=== PATIENT | female | born 1945 | race Caucasian/White ===

== ENCOUNTER → 2016-06-03 | Outpatient (CLI) | payer MEDICARE ==
[~2016-06-03] MED LIST: AMLO5TAB2 PO; ATOR40TA PO; CEFT2ADD IV; CIPR500S PO; CIPR500T3 PO; FAMC500T10 PO; FLEXERIL PO; HEPARIN FLUSH IV; HYDR12CA PO; HYDR25TA6 OR; IBUPOTC PO; LISI40TA OR; LOSA100T36 PO; MELO7.5T6 PO; NITR100C37 PO; OMEP20CA3 PO; OMEP20TA7 OR; OXYB5TAB5 OR; PERC5TAB6 PO; PERC5TAB8 OR; POTA20TA2 OR; SALINE FLUSH IV; SIMV40TA2 OR; VIT D 2000 PO
== END ==
LOC: M RAD 13:01
PROVIDERS: ATTEND Nurse Practitioner Adult Health
DX: Z53.8 Procedure and treatment not carried out for other reasons (principal)

== ENCOUNTER → 2016-08-16 | Outpatient (CLI) | payer MEDICARE ==
--- NOTE | 2016-08-16 12:45 | REPMRS ---
Patient History The patient states she has not had a clinical breast exam in over a year. Family history of unknown cancer in father at age 52, breast cancer in maternal aunt under age 50, unknown cancer in maternal aunt at age 72, and colorectal cancer in maternal aunt at age 50 or over. Digital Mammo Screening Bilat: August 16, 2016 - Exam #: [id number] Bilateral CC and MLO view(s) were taken. Technologist: Jennifer Zhou, Technologist Prior study comparison: August 14, 2015, bilateral digital mammo screening bilat performed at [facility]. January 24, 2014, digital mammo diagnostic bilateral performed at [facility]. January 10, 2013, bilateral digital mammo screening bilat performed at [facility]. FINDINGS: There are scattered fibroglandular densities. There is a moderate amount of residual fibroglandular tissue which is fairly symmetric. There is no interval development of dominant mass, architectural distortion, or clustered microcalcification typical of malignancy. There has been no change in the appearance of the mammogram from the prior studies. ASSESSMENT: BI-RADS/ACR category 1 mammogram. Negative. Recommendation Routine screening mammogram of both breasts in 1 year (for women over age 40). This mammogram was interpreted with the aid of an FDA-approved computer-aided dectection system. Electronically Signed By: Jose Barker MD 08/16/16 [id number]
== END ==
LOC: M RAD 11:00
PROVIDERS: ATTEND Nurse Practitioner Adult Health
DX: Z12.31 Encounter for screening mammogram for malignant neoplasm of breast (principal); Z80.3 Family history of malignant neoplasm of breast; Z80.0 Family history of malignant neoplasm of digestive organs

== ENCOUNTER → 2016-11-09 | Outpatient (CLI) | payer MEDICARE ==
[~2016-11-09] MED LIST changes: -ATOR40TA PO; +ATOR40TA75 PO; +E-Z-GAS II EFFERVESCENT PACKET (SODIUM BICARB./CITRIC ACID/SIMETHICONE) As Ordered ONE; +E-Z-HD 98% w/w 340GM SUSP BTL As Ordered ONE; +E-Z-PAQUE 96% w/w SUSP 176GM BTL As Ordered ONE; +ICAPCAP PO; -MELO7.5T6 PO; +MELO7.5T7 PO; -NITR100C37 PO; +NITR100C39 PO; +OMEP40CA2 PO; +PERC5TAB12 PO; -PERC5TAB6 PO
--- NOTE | 2016-11-09 17:32 | REP ---
Esophagram The procedure was performed under the direct supervision of Dr. Barker. The images were reviewed with Dr. Barker. A single view PA chest x-ray is submitted as a cosmetic surgeon film. The superior mediastinal structures are midline. The heart size is within normal limits. The lungs are clear. There are degenerative changes of the thoracic spine. Liquid barium and gas producing granules were given in the erect position as well as liquid barium in the prone oblique positions in order to perform a double contrast esophagram examination. The oral and pharyngeal stages of deglutition are unremarkable. Esophageal transport is prompt and efficient and there is no esophagitis, stricture, mucosal ring or hiatal hernia. There is gastroesophageal reflux demonstrated to above the level of the cira. Impression: There is gastroesophageal reflux demonstrated to above the level of the cira, otherwise unremarkable double contrast esophagram examination. 51 seconds of fluoro time was utilized for this procedure. Reviewed by DARIELA Johnson 11/09/2016 04:34 PSigned by Arnaldo Barker MD 11/09/2016 05:23 P
== END ==
LOC: M RAD 09:05
PROVIDERS: ATTEND Internal Medicine Gastroenterology
DX: R13.12 Dysphagia, oropharyngeal phase (principal); K21.9 Gastro-esophageal reflux disease without esophagitis

== ENCOUNTER → 2016-11-25 | Outpatient (REF) | payer MEDICARE ==
[~2016-11-25] MED LIST changes: -E-Z-GAS II EFFERVESCENT PACKET (SODIUM BICARB./CITRIC ACID/SIMETHICONE) As Ordered ONE; -E-Z-HD 98% w/w 340GM SUSP BTL As Ordered ONE; -E-Z-PAQUE 96% w/w SUSP 176GM BTL As Ordered ONE
== END ==
LOC: M LAB REF 10:03
PROVIDERS: ATTEND Nurse Practitioner Adult Health
DX: K12.1 Other forms of stomatitis (principal)

== ENCOUNTER 2016-11-26 07:24 | Outpatient (CLI) | payer MEDICARE ==
[~2016-11-26] VITALS: Ht 162.6 cm; Wt 93.4 kg
[2016-11-26] MEDS ORDERED: NS 1,000 ML IV ONE (08:15)
[2016-11-26] MEDS ORDERED: PROPOFOL 200 MG/20 ML VIAL As Ordered ONE (08:41)
[2016-11-26] MEDS ORDERED: LIDOCAINE 2% INJ 100 MG/5 ML SDV (FOR ANES.) As Ordered ONE (08:41)
--- NOTE | 2016-11-26 08:55 | ROOR ---
Patient Name: Deisy Case Procedure Date: 11/26/2016 8:41 AM Date of : 1945 Age: 71 Room: [facility] Gender: Female Note Status: Finalized Procedure: Upper GI endoscopy Indications: Functional Dyspepsia, Failure to respond to medical treatment, Globus sensation Providers: Gerardo MICHEL MD Referring MD: Radha Calabrese NP Requesting Provider: Medicines: Monitored Anesthesia Care Complications: No immediate complications. Procedure: Pre-Anesthesia Assessment: - The heart rate, respiratory rate, oxygen saturations, blood pressure, adequacy of pulmonary ventilation, and response to care were monitored throughout the procedure. The Endoscope was introduced through the mouth, and advanced to the second part of duodenum. The upper GI endoscopy was accomplished without difficulty. The patient tolerated the procedure well. Findings: The esophagus was normal. The stomach was normal. The examined duodenum was normal. No endoscopic abnormality was evident in the esophagus to explain the patient's complaint of dysphagia. It was decided, however, to proceed with dilation of the entire esophagus. The scope was withdrawn. Dilation was performed with a Anglin dilator with no resistance at 54 Fr. Impression: - Normal esophagus. - Normal stomach. - Normal examined duodenum. - No endoscopic esophageal abnormality to explain patient's dysphagia. Esophagus dilated with 54F bougie dilator. - No specimens collected. Recommendation: - Observe patient's clinical course. - If symptoms respond to todays dilation, then this can be done periodically as needed. - If symptoms do not respond to todays dilation, then recommend trial on amitriptyline 10-25 mg Q HS. Gerardo Michel MD Gerardo MICHEL MD 11/26/2016 8:54:36 AM This report has been signed electronically. Number of Addenda: 0 Note Initiated On: 11/26/2016 8:41 AM Estimated Blood Loss: Estimated blood loss: none.
[2016-11-26 09:12] VITALS: BP 145/97
== END 2016-11-26 09:12 | disposition home or self-care (01) ==
LOC: M OPP 07:24
PROVIDERS: ATTEND Internal Medicine Gastroenterology
DX: K30 Functional dyspepsia (principal); F45.8 Other somatoform disorders; R13.10 Dysphagia, unspecified; I10 Essential (primary) hypertension; E78.5 Hyperlipidemia, unspecified; K21.9 Gastro-esophageal reflux disease without esophagitis; M19.90 Unspecified osteoarthritis, unspecified site; M54.9 Dorsalgia, unspecified; Z88.8 Allergy status to other drugs, medicaments and biological substances; Z79.899 Other long term (current) drug therapy; Z80.1 Family history of malignant neoplasm of trachea, bronchus and lung; Z80.0 Family history of malignant neoplasm of digestive organs; Z80.3 Family history of malignant neoplasm of breast

== ENCOUNTER → 2017-06-24 | Outpatient (REF) | payer MEDICARE | LOC: M LAB REF 12:16 | DX: N39.0 Urinary tract infection, site not specified (principal) | CPT/HCPCS: 87186 ==

== ENCOUNTER → 2017-07-15 | Outpatient (REF) | payer MEDICARE ==
[2017-07-15 19:49] LABS: APPEARANCE, URINE CLEAR (CLEAR); BACTERIA, URINE AUTO NEGATIVE (NEGATIVE); BILIRUBIN, URINE AUTO NEGATIVE (NEGATIVE); BLOOD, URINE BLOOD NEGATIVE (NEGATIVE); COLOR, URINE STRAW (YELLOW); GLUCOSE, URINE (UA) AUTO NEGATIVE (NEGATIVE); KETONE, URINE AUTO NEGATIVE (NEGATIVE); LEUKOCYTE ESTERASE, URINE AUTO TRACE (NEGATIVE); NITRITE, URINE AUTO NEGATIVE (NEGATIVE); PROTEIN, URINE AUTO NEGATIVE (NEGATIVE); RBC, URINE AUTO 1 /HPF (0-3); SPECIFIC GRAVITY URINE AUTO 1.004 (1.002-1.035); SQUAMOUS EPITHELIAL CELL UR AU 0 /HPF (0-6); UROBILINOGEN, URINE AUTO 0.2 mg/dL (0.0-2.0); WBC, URINE AUTO 4 /HPF (0-3)
== END ==
LOC: M LAB REF 17:13
DX: N32.81 Overactive bladder (principal)
CPT/HCPCS: 81001

== ENCOUNTER → 2017-07-29 | Outpatient (REF) | payer MEDICARE ==
[2017-07-29 18:31] LABS: APPEARANCE, URINE HAZY (CLEAR); BACTERIA, URINE AUTO 1+ (NEGATIVE); BILIRUBIN, URINE AUTO NEGATIVE (NEGATIVE); BLOOD, URINE BLOOD 1+ (NEGATIVE); COLOR, URINE YELLOW (YELLOW); GLUCOSE, URINE (UA) AUTO NEGATIVE (NEGATIVE); KETONE, URINE AUTO TRACE mg/dL (NEGATIVE); LEUKOCYTE ESTERASE, URINE AUTO 3+ (NEGATIVE); NITRITE, URINE AUTO NEGATIVE (NEGATIVE); PROTEIN, URINE AUTO NEGATIVE (NEGATIVE); RBC, URINE AUTO 10 /HPF (0-3); SQUAMOUS EPITHELIAL CELL UR AU 0 /HPF (0-6); UROBILINOGEN, URINE AUTO 0.2 mg/dL (0.0-2.0); WBC, URINE AUTO 131 /HPF (0-3)
== END ==
LOC: M LAB REF 16:37
DX: N32.81 Overactive bladder (principal); N39.41 Urge incontinence
CPT/HCPCS: 81001

== ENCOUNTER → 2017-08-05 | Outpatient (REF) | payer MEDICARE ==
[2017-08-05 17:44] LABS: AMORPHOUS SEDIMENT SMALL (NEGATIVE); APPEARANCE, URINE HAZY (CLEAR); BACTERIA, URINE AUTO NEGATIVE (NEGATIVE); BILIRUBIN, URINE AUTO NEGATIVE (NEGATIVE); BLOOD, URINE BLOOD NEGATIVE (NEGATIVE); COLOR, URINE YELLOW (YELLOW); GLUCOSE, URINE (UA) AUTO NEGATIVE (NEGATIVE); KETONE, URINE AUTO NEGATIVE (NEGATIVE); LEUKOCYTE ESTERASE, URINE AUTO NEGATIVE (NEGATIVE); MUCUS, URINE SMALL (NEGATIVE); NITRITE, URINE AUTO NEGATIVE (NEGATIVE); PROTEIN, URINE AUTO NEGATIVE (NEGATIVE); RBC, URINE AUTO 1 /HPF (0-3); SPECIFIC GRAVITY URINE AUTO 1.015 (1.002-1.035); SQUAMOUS EPITHELIAL CELL UR AU 10 /HPF (0-6); WBC, URINE AUTO 2 /HPF (0-3)
== END ==
LOC: M LAB REF 16:21
DX: N30.00 Acute cystitis without hematuria (principal); R33.8 Other retention of urine
CPT/HCPCS: 81001

== ENCOUNTER 2017-08-11 12:45 | Day surgery (SDC) | payer MEDICARE ==
[2017-08-11] MEDS ORDERED: LIDOCAINE 1% MDV 20ML VIAL SQ (13:00)
[2017-08-11] MEDS ORDERED: LR 1,000 ML IV ×3 (13:00→17:30)
[2017-08-11] MEDS ORDERED: fentaNYL 100 MCG/2 ML INJECTION (J3010) As Ordered (13:24)
[2017-08-11] MEDS: LR 1,000 ML IV (13:25)
[2017-08-11] MEDS ORDERED: ceFAZolin SOD 1 GM in D5W MINI-BAG PLUS 50 ML IV (13:30)
[2017-08-11] MEDS ORDERED: PROPOFOL 200 MG/20 ML VIAL As Ordered ×3 (15:22→15:34)
[2017-08-11] MEDS ORDERED: KETAMINE HCL 200 MG/20 ML VIAL As Ordered (15:42)
[2017-08-11] MEDS: LIDOCAINE 1% SDV INJ 30 ML VIAL As Ordered ×2 (15:44→15:51)
[2017-08-11] MEDS: ceFAZolin 1GM INJ (J0690 PER 500MG) As Ordered (15:58)
[2017-08-11] MEDS ORDERED: ONDANSETRON 4MG/2ML VIAL (J2405) IV (17:15)
[2017-08-11] MEDS ORDERED: PERCOCET 5MG/325MG TAB PO (17:15)
[2017-08-11] MEDS ORDERED: ACETAMINOPHEN TAB 650MG DOSE (2X325MG) As Ordered (17:20)
[2017-08-11] MEDS: ACETAMINOPHEN TAB 650MG DOSE (2X325MG) PO (17:21)
== END 2017-08-11 18:20 | disposition home or self-care (01) ==
LOC: M SDC 18:20
DX: R32 Unspecified urinary incontinence (principal); R33.9 Retention of urine, unspecified; K21.9 Gastro-esophageal reflux disease without esophagitis; R06.83 Snoring; G47.30 Sleep apnea, unspecified; E78.00 Pure hypercholesterolemia, unspecified; I10 Essential (primary) hypertension; Z87.440 Personal history of urinary (tract) infections; Z90.710 Acquired absence of both cervix and uterus; Z96.1 Presence of intraocular lens; Z79.899 Other long term (current) drug therapy; Z88.8 Allergy status to other drugs, medicaments and biological substances
CPT/HCPCS: 64581

== ENCOUNTER 2017-08-18 07:26 | Day surgery (SDC) | payer MEDICARE ==
[2017-08-18] MEDS: LR 1,000 ML IV ×2 (07:25)
[2017-08-18] MEDS ORDERED: ONDANSETRON 4MG/2ML VIAL (J2405) As Ordered ×2 (09:11)
[2017-08-18] MEDS ORDERED: METOCLOPRAMIDE INJ 10MG/2ML VIAL (J2765) As Ordered ×2 (09:11)
[2017-08-18] MEDS ORDERED: LIDOCAINE 2% INJ 100 MG/5 ML SDV (FOR ANES.) As Ordered ×2 (09:11)
[2017-08-18] MEDS ORDERED: fentaNYL 100 MCG/2 ML INJECTION (J3010) As Ordered ×2 (09:11)
[2017-08-18] MEDS ORDERED: MIDAZOLAM INJ 2 MG/2 ML VIAL (J2250) As Ordered ×2 (09:11)
[2017-08-18] MEDS: LIDOCAINE 1% SDV INJ 30 ML VIAL As Ordered ×2 (09:30)
[2017-08-18] MEDS: ceFAZolin 1GM INJ (J0690 PER 500MG) As Ordered ×2 (09:40)
[2017-08-18] MEDS ORDERED: PROPOFOL 200 MG/20 ML VIAL As Ordered ×2 (09:52)
== END 2017-08-18 10:46 | disposition home or self-care (01) ==
LOC: M SDC 07:26
DX: R32 Unspecified urinary incontinence (principal); R33.9 Retention of urine, unspecified; I10 Essential (primary) hypertension; K21.9 Gastro-esophageal reflux disease without esophagitis; R06.83 Snoring; G47.30 Sleep apnea, unspecified; Z88.8 Allergy status to other drugs, medicaments and biological substances; Z79.899 Other long term (current) drug therapy; Z87.440 Personal history of urinary (tract) infections; Z96.1 Presence of intraocular lens; Z90.710 Acquired absence of both cervix and uterus
CPT/HCPCS: 64581; 64590

== ENCOUNTER 2017-11-10 08:50 | Day surgery (SDC) | payer MEDICARE ==
[~2017-11-10 08:50] MED LIST changes: -AMLO5TAB2 PO; -ATOR40TA75 PO; -CEFT2ADD IV; -CIPR500S PO; -CIPR500T3 PO; -FAMC500T10 PO; -FLEXERIL PO; -HEPARIN FLUSH IV; -HYDR12CA PO; -HYDR25TA6 OR; -IBUPOTC PO; -ICAPCAP PO; +LIDOCAINE 1% MDV 20ML VIAL SQ; -LISI40TA OR; -LOSA100T36 PO; -MELO7.5T7 PO; -NITR100C39 PO; -OMEP20CA3 PO; -OMEP20TA7 OR; -OMEP40CA2 PO; -OXYB5TAB5 OR; -PERC5TAB12 PO; -PERC5TAB8 OR; -POTA20TA2 OR; -SALINE FLUSH IV; -SIMV40TA2 OR; -VIT D 2000 PO
[2017-11-10] MEDS ORDERED: LR 1,000 ML IV ×2 (09:15→15:30)
[2017-11-10] MEDS: LR 1,000 ML IV ×2 (09:50→11:50)
[2017-11-10] MEDS: BOTULINUM INJ 100 UNITS (J0585) As Ordered (10:42)
[2017-11-10] MEDS ORDERED: fentaNYL 100 MCG/2 ML INJECTION (J3010) As Ordered ×2 (10:42→12:02)
[2017-11-10] MEDS ORDERED: MIDAZOLAM INJ 2 MG/2 ML VIAL (J2250) As Ordered (10:43)
[2017-11-10] MEDS ORDERED: PROPOFOL 200 MG/20 ML VIAL As Ordered ×3 (11:11)
[2017-11-10] MEDS ORDERED: KETOROLAC 60 MG/2 ML VIAL (J1885) As Ordered (11:12)
[2017-11-10] MEDS ORDERED: dexameTHASONE 4 MG/ML 1ML VIAL (J1100) As Ordered (11:12)
[2017-11-10] MEDS ORDERED: ONDANSETRON 4MG/2ML VIAL (J2405) As Ordered ×2 (11:12→12:02)
[2017-11-10] MEDS ORDERED: NORCO, ANEXSIA 5/325MG TABLET (HYDROcodone/ACETAMINOPHEN) As Ordered (12:02)
[2017-11-10] MEDS: ONDANSETRON 4MG/2ML VIAL (J2405) IV (12:05)
[2017-11-10] MEDS: NORCO, ANEXSIA 5/325MG TABLET (HYDROcodone/ACETAMINOPHEN) PO (12:05)
[2017-11-10] MEDS: fentaNYL 100 MCG/2 ML INJECTION (J3010) IV ×4 (12:05→12:20)
[2017-11-10] MEDS ORDERED: ACETAMINOPHEN TAB 650MG DOSE (2X325MG) PO ×2 (12:15→15:30)
[2017-11-10] MEDS: METOCLOPRAMIDE INJ 10MG/2ML VIAL (J2765) IV (15:00)
[2017-11-10] MEDS ORDERED: fentaNYL 100 MCG/2 ML INJECTION (J3010) IV (15:30)
[2017-11-10] MEDS ORDERED: ONDANSETRON 4MG/2ML VIAL (J2405) IV (15:30)
[2017-11-10] MEDS ORDERED: IBUPROFEN 600 MG TAB PO (17:00)
== END 2017-11-10 15:30 | disposition home or self-care (01) ==
LOC: M SDC 08:50
DX: N75.0 Cyst of Bartholin's gland (principal); I10 Essential (primary) hypertension; E78.5 Hyperlipidemia, unspecified; K21.9 Gastro-esophageal reflux disease without esophagitis; G47.30 Sleep apnea, unspecified; Z79.899 Other long term (current) drug therapy
CPT/HCPCS: 56740

== ENCOUNTER → 2017-12-07 | Outpatient (CLI) | payer MEDICARE | LOC: M RAD 10:52 | DX: Z12.31 Encounter for screening mammogram for malignant neoplasm of breast (principal); Z80.3 Family history of malignant neoplasm of breast; Z80.0 Family history of malignant neoplasm of digestive organs | CPT/HCPCS: 77067 ==

== ENCOUNTER → 2018-08-22 | Outpatient (REF) | payer MEDICARE ==
[~2018-08-22] MED LIST changes: +AMLO5TAB6 PO; +ATOR40TA75 PO; +CEFT2ADD IV; +CIPR500S PO; +CIPR500T3 PO; +FAMC500T10 PO; +FLEXERIL PO; +HEPARIN FLUSH IV; +HYDR12CA PO; +HYDR25TA6 OR; +IBUPOTC PO; +ICAPCAP PO; -LIDOCAINE 1% MDV 20ML VIAL SQ; +LISI40TA OR; +LOSA100T50 PO; +MELO7.5T7 PO; +NITR100C39 PO; +OMEP20CA3 PO; +OMEP20TA7 OR; +OMEP20TA9 PO; +OMEP40CA2 PO; +OXYB5TAB5 OR; +PERC5TAB12 PO; +PERC5TAB8 OR; +POTA20TA2 OR; +SALINE FLUSH IV; +SIMV40TA2 OR; +VIT D 2000 PO
[2018-08-22 18:38] LABS: APPEARANCE, URINE CLEAR (CLEAR); BACTERIA, URINE AUTO NEGATIVE (NEGATIVE); BILIRUBIN, URINE AUTO NEGATIVE (NEGATIVE); BLOOD, URINE BLOOD NEGATIVE (NEGATIVE); COLOR, URINE STRAW (YELLOW); GLUCOSE, URINE (UA) AUTO NEGATIVE (NEGATIVE); KETONE, URINE AUTO NEGATIVE (NEGATIVE); LEUKOCYTE ESTERASE, URINE AUTO NEGATIVE (NEGATIVE); NITRITE, URINE AUTO NEGATIVE (NEGATIVE); PROTEIN, URINE AUTO NEGATIVE (NEGATIVE); RBC, URINE AUTO 0 /HPF (0-3); SPECIFIC GRAVITY URINE AUTO 1.004 (1.002-1.035); SQUAMOUS EPITHELIAL CELL UR AU 1 /HPF (0-6); UROBILINOGEN, URINE AUTO 0.2 mg/dL (0.0-2.0); WBC, URINE AUTO 1 /HPF (0-3)
== END ==
LOC: M LAB REF 17:17
PROVIDERS: ATTEND Obstetrics & Gynecology
DX: N39.0 Urinary tract infection, site not specified (principal)

== ENCOUNTER → 2018-09-21 | Outpatient (CLI) | payer MEDICARE ==
[~2018-09-21] MED LIST changes: -OMEP20CA3 PO; +OMEP20CA4 PO
--- NOTE | 2018-09-21 11:41 | REP ---
Duplex extremity venous ultrasound: Left lower extremity. History: Left leg pain. Rule out DVT. Findings: The deep veins are anechoic and fully compressible from the groin to the popliteal fossa in the left lower extremity. Color flow imaging is homogeneous. Spectral Doppler interrogation demonstrates intact respiratory variation in flow and normal manual augmentation of flow. There is no evidence of deep vein thrombosis. Impression: Negative left lower extremity duplex venous ultrasound. No evidence of deep vein thrombosis. Electronically Signed by Arnaldo Barker MD 09/21/2018 11:32 A
== END ==
LOC: M RAD 10:59
PROVIDERS: ATTEND Nurse Practitioner Adult Health
DX: M79.605 Pain in left leg (principal); M79.89 Other specified soft tissue disorders

== ENCOUNTER → 2018-12-20 | Outpatient (CLI) | payer MEDICARE ==
--- NOTE | 2018-12-20 10:51 | REP ---
BILATERAL SCREENING DIGITAL MAMMOGRAM WITH 3D TOMOSYNTHESIS: There are no palpable abnormalities or other breast complaints. The the patient states she had a clinical breast examination November,. The Tyrer Cuzick Score is: 4.8% . Comparisons are 01/24/2014, 08/14/2015, 08/16/2016 and 12/07/2017. The breasts are heterogeneously dense, which could obscure small masses. There is no dominant mass, micro calcific cluster or architectural distortion that would indicate malignancy. There are numerous benign calcifications, as previously. There are no additional findings on 3D tomosynthesiss. There is no change from the prior study. Impression: BIRADS/ACR category 2 mammogram. Benign Findings. Recommendation: Routine annual screening mammography. Because of the increased breast density, annual adjunctive breast MRI in addition to screening mammography is recommended. These can be performed at alternating six month intervals. This mammogram was interpreted with the aid of a FDA approved computer-aided detection system. A. Negative mammogram reports should not delay biopsy if a dominant or clinically suspicious mass is present. B. Not all breast cancers are identified by mammography or tomosynthesis. C. Adenosis and dense breasts may obscure an underlying neoplasm. Patient letter M1 dense breasts. Electronically Signed by Neo Bullock MD 12/20/2018 10:43 A
== END ==
LOC: M RAD 08:50
PROVIDERS: ATTEND Nurse Practitioner Adult Health
DX: Z12.31 Encounter for screening mammogram for malignant neoplasm of breast (principal)

== ENCOUNTER → 2019-01-22 | Outpatient (CLI) | payer MEDICARE ==
[~2019-01-22] MED LIST changes: -OMEP40CA2 PO; +OMEP40CA97 PO
[2019-01-22 10:35] LABS: HEMATOCRIT 40.7 % (36.0-47.0); HEMOGLOBIN 13.5 g/dl (12.0-15.5); MEAN CORPUSCULAR HEMOGLOBIN 30.5 pg (27.0-33.0); MEAN CORPUSCULAR HGB CONC 33.2 g/dl (32.0-36.5); MEAN CORPUSCULAR VOLUME 91.9 fl (80.0-96.0); PLATELET COUNT, AUTOMATED 320 10^3/uL (150-450); RED BLOOD COUNT 4.43 10^6/uL (4.00-5.40); WHITE BLOOD COUNT 8.7 10^3/uL (4.0-10.0)
[2019-01-22 10:50] LABS: INR 1.09; PROTHROMBIN TIME 13.8 SECONDS (11.8-14.0)
[2019-01-22 11:08] LABS: ALBUMIN 3.6 GM/DL (3.2-5.2); ALT/SGPT 30 U/L (12-78); BILIRUBIN,TOTAL 0.6 MG/DL (0.2-1.0); BLOOD UREA NITROGEN 13 MG/DL (7-18); CALCIUM LEVEL 8.8 MG/DL (8.8-10.2); CARBON DIOXIDE LEVEL 26 MEQ/L (21-32); CHLORIDE LEVEL 110 MEQ/L (98-107); CREATININE FOR GFR 0.79 MG/DL (0.55-1.30); GLOMERULAR FILTRATION RATE > 60.0 (>39); GLUCOSE, FASTING 116 MG/DL (70-100); POTASSIUM SERUM 3.9 MEQ/L (3.5-5.1); SODIUM LEVEL 142 MEQ/L (136-145)
[2019-01-22 11:14] LABS: ERYTHROCYTE SEDIMENTATION RATE 24 mm/hr (0-30)
--- NOTE | 2019-01-22 11:17 | ECGEPIP ---
[facility] Test Date: 2019-01-22 Pat Name: NARINDER LE Department: Room: - Gender: Female Sap Abap Programmer: DEJON : 1945 Requested By: Rajendra Noland Order Number: [id number] Reading MD: Christy Jamil Measurements Intervals [place]far[place] Rate: 67 P: 30 IN: 162 QRS: 14 QRSD: 91 T: 57 QT: 414 QTc: 437 Interpretive Statements SINUS RHYTHM WITH OCCASIONAL SUPRAVENTRICULAR PREMATURE COMPLEXES ST & T-WAVE ABNORMALITY NEW C/W 07/03/14 Electronically Signed on 01-22-2019 11:17:19 EST by Christy Jamil
--- NOTE | 2019-01-22 12:43 | REP ---
Two-view chest: 01/22/2019. Indication: Preoperative assessment. Comparison: 09/19/2015. Findings: The lungs are clear. There is no pleural effusion or pneumothorax. Multilevel thoracic degenerative sequelae are noted. The cardiac silhouette is at the upper limits of normal in size. Impression: Clear lungs. Electronically Signed by Jamal Richter DO 01/22/2019 12:35 P
== END ==
LOC: M LAB 09:59
PROVIDERS: ATTEND Orthopaedic Surgery
DX: M17.11 Unilateral primary osteoarthritis, right knee (principal); Z79.01 Long term (current) use of anticoagulants

== ENCOUNTER 2019-02-19 09:53 | Inpatient (IN) | payer MEDICARE ==
--- NOTE | 2019-02-13 13:42 | HPE ---
DATE OF ADMISSION: 02/19/2019 HISTORY OF PRESENT ILLNESS: This is a pleasant, 73-year-old female with continuing symptomatic right knee osteoarthritis. She has consented for a right total knee arthroplasty per Dr. Rajendra Noland. Medical optimization was completed by DARRIAN Jerez 01/12/2019 . X-rays are consistent with advanced osteoarthritis. MEDICATION LIST: Includes: - furosemide 20 mg - omeprazole 20 mg - amlodipine besylate 5 mg - atorvastatin calcium 40 mg - I-Bobby ALLERGIES: NITROFURANTOIN - rash and fever. SPIRONOLACTONE - rash and fever. MEDICAL PROBLEM LIST: 1. Symptomatic right knee osteoarthritis. 2. Gastroesophageal reflux disease. 3. Pure hypercholesterolemia. 4. Essential hypertension. 5. Obstructive sleep apnea syndrome - (mild). 6. Obesity. SURGICAL HISTORY: 1. Partial hysterectomy - bleeding. 2. Right heel spur removal. 3. Knee arthroscopy bilaterally. 4. Bladder suspension. 5. Laminectomy, July 2014, Dr. Simms. 6. Breast lumpectomy, five, benign. 7. Cataract removal bilaterally. 8. Cystourethroscopy with Macroplastique periurethral bulking. 9. InterStim Stage 1 surgery 08/11/2017, InterStim Stage 2, 08/18/2017, Dr. Rod. FAMILY HISTORY: Father due to lung cancer, age 52. Mother premature heart attack, age 57, sudden after myocardial infarction ([place]). Brother of [place] sudden age 70. Chronic obstructive pulmonary disease (COPD) oxygen dependent of his brother #2. Sister #1 coronary artery disease. Half sister had open heart surgery before age 55. Maternal aunt had colon cancer, lung cancer, and breast cancer. SOCIAL HISTORY: . Lives with spouse. Retired. Never smoked. Occasionally consumes wine. REVIEW OF SYSTEMS: Denies chest pain, shortness of breath, dyspnea on exertion, fever, chills, malaise, upper respiratory or urinary tract symptoms. Chest x-ray, [facility], service date 01/22/2019, clear lungs as read by Dr. Richter. EKG, [facility], 01/22/2019, sinus rhythm with occasional supraventricular premature complexes as read by Dr. Schrader. Laboratory studies were ordered, completed on 01/23/2019. Glucose fasting 116, chloride level 110, anion gap 6, alkaline phosphatase 168. Vital Signs: Height 5, 2-1/2. Weight 205.8. Temperature 97.8. BP 130/70. Pulse 66. Respirations 17. This is a pleasant, well-developed, well-nourished, obese female, in no acute distress, alert and oriented times three. Mood and affect are appropriate. She is ambulating without overt antalgia or assistance favoring bilateral lower extremity. Skin is intact, benign, noninfectious looking. Right knee positive medial joint line tenderness to palpation with crepitance about the knee through flexion and extension. Patellofemoral joint (PFJ) is congruent, static, and dynamic. Negative popliteal fossa, mass or pain. Right hip range of motion is not grossly limited or irritable. Bowels soft, nontender, sounds times four. Chest rises symmetrically. Regular rate and rhythm. Lungs clear to auscultation. Neck supple. Negative jugular venous distention (JVD) or bruits. Normocephalic. IMPRESSION: 1. Symptomatic right knee osteoarthritis. 2. The patient consented for a right total knee arthroplasty per Dr. Rajendra Noland. 3. Medical optimization per DARRIAN Jerez. 4. On-call to operating room (OR) 2 grams IV Kefzol in OR. 5. Sequential compressive device (SCD) and thromboembolism deterrents (TEDs) in OR. 6. The patient states that she has an implantable bladder stimulator for a neurogenic bladder. She is able to shut that on and off. I counseled her to bring appropriate devices needed and she should contact Dr. Rod's office for preoperative instructions. KATHY
[~2019-02-19] VITALS: Ht 162.6 cm; Wt 93.9 kg
[~2019-02-19 09:53] MED LIST changes: +BUPIVACAINE LIPOSOME/PF 1.3% 20ML VIAL (13.3MG/ML)(EXPAREL)(C9290 PER1MG) As Ordered ONE; +EPINEPHrine INJ 1 MG/ML 1ML AMP As Ordered ONE; +FURO20TA2 PO; +LR 1,000 ML IV ONE; +OMEP-172 PO; -OMEP20CA4 PO; +TRANEXAMIC ACID 100 MG/ML 10ML VIAL As Ordered ONE; +ceFAZolin 1GM INJ (J0690 PER 500MG) As Ordered ONE; +ceFAZolin SOD 2 GM in IV 1 EA IV ONE
[2019-02-19] MEDS ORDERED: MIDAZOLAM INJ 2 MG/2 ML VIAL (J2250) As Ordered ONE ×2 (09:59→11:18)
[2019-02-19] MEDS ORDERED: PROPOFOL 500 MG/50 ML VIAL As Ordered ONE (09:59)
[2019-02-19] MEDS ORDERED: LIDOCAINE 2% INJ 100 MG/5 ML SDV (FOR ANES.) As Ordered ONE (10:01)
[2019-02-19] MEDS ORDERED: ONDANSETRON 4MG/2ML VIAL (J2405) As Ordered ONE (10:02)
[2019-02-19] MEDS ORDERED: ceFAZolin 2 GM/D5W 50 ML IV BAG (J0690 PER 500MG) As Ordered ONE (10:10)
[2019-02-19] MEDS ORDERED: ceFAZolin SOD 2 GM in IV 1 EA IV ONE (10:15)
--- NOTE | 2019-02-19 10:48 | IPN ---
DATE: 02/19/2019 The patient is seen and examined. She wished to go ahead with the right total knee arthroplasty. She understands the nature and the risks of bleeding, infection, damage to nerves, vessels, persistent pain, wear, loosening, blood clots, medical problems, . She understands that with her obesity she is at higher risk of complications.
[2019-02-19] MEDS ORDERED: fentaNYL 100 MCG/2 ML INJECTION (J3010) As Ordered ONE (11:18)
[2019-02-19] MEDS ORDERED: fentaNYL 100 MCG/2 ML INJECTION (J3010) IV PRN ×2 (13:00→14:30)
[2019-02-19] MEDS ORDERED: MIDAZOLAM INJ 2 MG/2 ML VIAL (J2250) IV PRN (13:00)
[2019-02-19] MEDS ORDERED: PROPOFOL 200 MG/20 ML VIAL As Ordered ONE ×2 (13:18→13:43)
[2019-02-19] MEDS ORDERED: ACETAMINOPHEN 1000MG 100ML IV BTL (OFIRMEV) (J0131 PER 10MG) As Ordered ONE (13:33)
[2019-02-19] MEDS ORDERED: MORPHINE 2 MG/ML 1ML VIAL (J2270) IV PRN ×2 (14:15)
[2019-02-19] MEDS ORDERED: FLEET ENEMA PR PRN (14:15)
[2019-02-19] MEDS ORDERED: LR 1,000 ML IV SCH ×2 (14:15→14:30)
[2019-02-19] MEDS ORDERED: ACETAMINOPHEN TAB 650MG DOSE (2X325MG) PO PRN (14:15)
[2019-02-19] MEDS ORDERED: PERCOCET 5MG/325MG TAB PO PRN (14:30)
[2019-02-19] MEDS ORDERED: ONDANSETRON 4MG/2ML VIAL (J2405) IV PRN (14:30)
[2019-02-19] MEDS ORDERED: METOCLOPRAMIDE INJ 10MG/2ML VIAL (J2765) IV PRN (14:30)
[2019-02-19] MEDS ORDERED: EPINEPHrine INJ 1 MG/ML 1ML AMP ONE (14:31)
[2019-02-19] MEDS ORDERED: LIDOCAINE 1% MDV 20ML VIAL ONE (14:31)
[2019-02-19] MEDS ORDERED: ROPIvacaine 0.5% 30 ML INJECTION (J2795 PER 1MG) ONE (14:31)
--- NOTE | 2019-02-19 14:37 | RO ---
DATE OF PROCEDURE: 02/19/2019 POSTOPERATIVE DIAGNOSIS: Right total knee arthroplasty. POSTOPERATIVE DIAGNOSIS: Right total knee arthroplasty. PROCEDURE: Right total knee arthroplasty using an Attune rotating platform posterior stabilized size 5 femur, size 4, with a 6 thickness polyethylene and a 35 patellar button. SURGEON: Rajendra Noland MD PAEDIATRICIAN: Scar Zhao PA-C ANESTHESIA: Spinal. ESTIMATED BLOOD LOSS: 50. COMPLICATIONS: None. INDICATION: A 73-year woman who has gradually worsening knee pain. She wished to go ahead with the surgical treatment of her knee. She had severe arthritis and valgus alignment. I anticipated using a posterior stabilized due to her deformity and also the fact that she had some flexion contracture. DESCRIPTION OF PROCEDURE: The patient was taken to the operating room and placed in supine position after spinal anesthesia was induced. The right lower extremity was prepped and draped in usual sterile fashion. A tourniquet was inflated after time-out was performed. A longitudinal incision was made over the anterior aspect of the knee, and she did have significant obesity which made this fairly challenging, and I dissected down to find the retinaculum. I did a medial parapatellar arthrotomy and everted the patella, but that was difficult due to the size of her leg. I used the canal-initiating reamer followed by the intramedullary guide which was pinned in place in the appropriate amount of valgus and 9 mm thick cut. Distal femoral cut was made. I then sized the femur to be a 5, and the drill holes were placed in the end of the femur with the external rotation dialed in, and the cutting block was secured. The remaining cuts were made in the usual fashion protecting soft tissues. I then prepared the tibia with the retractors being placed and then the tibial alignment guide which was then secured in place at about 4-5 mm off of the medial side which seemed to be actually slightly lower than the lateral. The external alignment was checked again, and then the proximal tibia cut was made. The bone was removed. I then used the electrical mechanic to remove soft tissue from either side of the knee. I then used the box cutting device/guide and then pinned this in place, made the remaining three cuts. I then prepared the tibia. The size 4 tray fit nicely, and the drill and broach were then placed. I had also used the spacer blocks and decided on a size 6 polyethylene that seemed to be the most appropriate. I had done somewhat of a medial release. I had to do a little bit more of this to balance it. I then placed the trial components, which fit very nicely. I elected to go with a 5 narrow, and there was excellent range of motion and stability. I then freehand cut the patella, removing about 7 mm of bone, sized to be a 35. The drill holes were placed, and the button was placed. I did have do a small amount of a lateral release in order to allow this to track, but overall I was very pleased with the components. Drill holes were placed in the end of the femur. The plant attendant or assistant operator prepared the bone cement in a modern technique, and I irrigated and dried the bony surfaces, placed the Exparel in the deep tissues, and then cemented all the components in, removed all excess bone cement. The patella in place with a patellar clamp; and once the cement hardened, I removed that clamp. I had placed the tranexamic acid (TXA) in the deep tissues and then did the final deep irrigation, closed the deep layer with #1 Vicryl suture and a running Stratafix suture. Watertight closure was obtained. I put the knee through a range of motion. The patella tracked quite nicely. Excellent stability in flexion and extension. I then irrigated, closed the subcutaneous with 2-0 Vicryl, the skin with colin. Sterile dressing was applied. The tourniquet had been deflated once the cement hardened. She was taken to recovery room in stable condition. There were no known complications. The plan will be routine postoperative. This is coded as an unusually difficult procedure due to her morbid obesity. She had a very large leg which made the exposure and manipulation of the leg much more difficult. It added time to the procedure. It was more difficult to balance the tissues. The plant attendant or assistant operator was instrumental in holding retractors and assisting in mixing bone the cement and assisting in wound closure.
--- NOTE | 2019-02-19 14:46 | HPEPDOC ---
General Date of Admission Feb 19, 2019 at 09:53 Date of Service: Feb 19, 2019 Chief Complaint The patient is a 73-year-old female admitted with a reason for visit of Right Knee Osteoarthritis. History of Present Illness Deisy Case is a 73 year old female s/p RKA. She is being assessed by the hospitalist team for any medical comorbidities. Patient has a PMHx of HTN, GERD, Pure hypercholesterolemia, mild WONG, Obesity. Patient is being seen in the PACU today. She reported that she feels fine following her surgery. She has had arthritic pain in that knee for several years now; injections became ineffective. Patient reported she has the above medical conditions for which she sees her PCP [id number]. She reported her BP is typically well-controlled and she is compliant with all medications. Home Medications Scheduled Amlodipine Besylate (Amlodipine Besylate) 5 Mg Tab, 5 MG PO DAILY, (Reported) Atorvastatin Calcium (Atorvastatin Calcium) 40 Mg Tab, 40 MG PO DAILY, (Reported) Furosemide (Furosemide) 20 Mg Tablet, 20 MG PO DAILY, (Reported) Omeprazole (Omeprazole) 20 Mg Tab, 20 MG PO DAILY, (Reported) Allergies Coded Allergies: nitrofurantoin (Verified Allergy, Intermediate, rash, hypokalemia, 02/19/19) spironolactone (Verified Allergy, Unknown, 02/19/19) ATTENDING NOTE I have personally performed a face to face diagnostic evaluation on this patient. I have reviewed and agree with the care plan. Past Medical History Medical History R Knee Osteoarthritis GERD HTN Pure hypercholesterolemia mild WONG Obesity Surgical History 1. Partial hysterectomy - bleeding. 2. Right heel spur removal. 3. Knee arthroscopy bilaterally. 4. Bladder suspension. 5. Laminectomy, July 2014, Dr. Simms. 6. Breast lumpectomy, five, benign. 7. Cataract removal bilaterally. 8. Cystourethroscopy with Macroplastique periurethral bulking. 9. InterStim Stage 1 surgery 08/11/2017, InterStim Stage 2, 08/18/2017, Family History Significant Family History: Cancer (Father (feb.)), COPD (Brother ), Heart disease (Brother (feb.)), Hypertension (Mother (feb.)), Other (Sister - CAD) Social History * Smoker: Denies Alcohol: Denies Drugs: denies Recent Travel/Sick Contacts: Reports: Recent travel A-FIB/[facility] A-FIB History Current/History of A-Fib/PAF?: No Current PO Anticoag Therapy: Yes Review of Systems Constitutional: Denies: Fever Eyes: Denies: Pain, Vision change ENT: Denies: Head Aches, Ear Pain, Dysphagia Skin: Denies: Rash, Lesions, Breakdown Pulmonary: Denies: Dyspnea, Cough Cardiovascular: Denies: Chest Pain, Palpitations, Orthopnea, Paroxysmal Noc. Dyspnea, Lt Headedness Gastrointestinal: Denies: Nausea, Vomiting, Abdominal Pain, Diarrhea Genitourinary: Denies: Dysuria, Frequency, Incontinence, Retention Hematologic: Denies: Bruising, Bleeding Excessively Musculoskeletal: Denies: Neck Pain, Back Pain, Joint Pain, Muscle Pain, Spasms Neurological: Denies: Weakness, Numbness, Change in speech, Confusion Psych: Reports: Mood Normal; Denies: Depression, Memory Issues Physical Examination General Exam: Positive: Alert, Cooperative, No Acute Distress Eye Exam: Positive: Conjunctiva & lids normal ENT Exam: Positive: Atraumatic Chest Exam: Positive: Clear to auscultation, Normal air movement Heart Exam: Positive: Rate Normal, Normal S1, Normal S2 Extremity Exam: Positive: Edema (edematous around bandages on R knee ); Negative: Clubbing, Cyanosis Skin Exam: Positive: Nl turgor and temperature Neuro Exam: Positive: Normal Speech Psych Exam: Positive: Mood NL Vital Signs Vital Signs Date Time Temp Pulse Resp B/P (MAP) Pulse Ox O2 Delivery O2 Flow Rate FiO2 02/19/19 14:02 97.3 81 18 117/59 (78) 95 Room Air 02/19/19 12:05 3 Assessment/Plan Deisy Case is a 73 year old female s/p RKA. She is being assessed by the hospitalist team for any medical comorbidities. Patient has a PMHx of HTN, GERD, Pure hypercholesterolemia, mild WONG, Obesity. HTN Re-start Amlodipine 5mg QDAY. GERD Re-start Omeprazole 20mg QDAY Pure hypercholesterolemia Re-start Lipitor 40g QDAY mild WONG Nighttime O2 ordered Obesity Recommend exercise 30 mins/day, 5 days per week once recovery from surgery is complete and patient has surgical clearance. Plan / VTE VTE Prophylaxis Ordered?: BREANNE Biswas PA-C Feb 19, 2019 14:46 SHAHRIAR GUNTER MD Feb 19, 2019 20:26
--- NOTE | 2019-02-19 14:48 | REP ---
Two views right knee: 02/19/2019. Indication: Postoperative assessment. Findings: The patient is status post right total knee arthroplasty with the surgical hardware intact and well seated. Expected soft tissue emphysema is present. There is no acute fracture. Impression: Expected postoperative sequelae of the right knee. Electronically Signed by Jamal Richter DO 02/19/2019 02:39 P
[2019-02-19 19:55] VITALS: BP 133/75
[2019-02-19] MEDS: PERCOCET 5MG/325MG TAB PO PRN (20:19)
[2019-02-19] MEDS: ceFAZolin SOD 2 GM in IV 1 EA IV SCH (20:34)
[2019-02-19] MEDS: ONDANSETRON 4MG/2ML VIAL (J2405) IV PRN (23:41)
[2019-02-20] MEDS: PERCOCET 5MG/325MG TAB PO PRN (02:01)
[2019-02-20 02:40] VITALS: BP 133/76
[2019-02-20] MEDS: ceFAZolin SOD 2 GM in IV 1 EA IV SCH (03:37)
[2019-02-20 06:10] VITALS: BP 164/81
[2019-02-20 06:10] LABS: HEMATOCRIT 36.8 % (36.0-47.0); HEMOGLOBIN 11.9 g/dl (12.0-15.5); MEAN CORPUSCULAR HEMOGLOBIN 30.3 pg (27.0-33.0); MEAN CORPUSCULAR HGB CONC 32.3 g/dl (32.0-36.5); MEAN CORPUSCULAR VOLUME 93.6 fl (80.0-96.0); PLATELET COUNT, AUTOMATED 271 10^3/uL (150-450); RED BLOOD COUNT 3.93 10^6/uL (4.00-5.40); WHITE BLOOD COUNT 12.6 10^3/uL (4.0-10.0)
[2019-02-20] MEDS ORDERED: traMADol 50 MG TAB PO PRN (06:45)
[2019-02-20] MEDS ORDERED: ACETAMINOPHEN 500 MG TAB PO PRN (06:45)
[2019-02-20] MEDS ORDERED: XARE10TA PO (06:53)
[2019-02-20] MEDS ORDERED: TRAM50TA2 PO ×2 (06:53→06:56)
[2019-02-20] MEDS: ONDANSETRON 4MG/2ML VIAL (J2405) IV PRN (08:24)
[2019-02-20] MEDS: MIRALAX *UNIT DOSE* 17GM PACKET PO SCH (09:00)
[2019-02-20] MEDS: OMEPRAZOLE 20 MG CAP PO SCH (09:13)
[2019-02-20] MEDS: ATORVASTATIN 20 MG TAB PO SCH (09:13)
[2019-02-20] MEDS: SENOKOT S TAB PO SCH ×2 (09:14→20:13)
[2019-02-20] MEDS: amLODIPine 5 MG TAB PO SCH (09:14)
[2019-02-20] MEDS: traMADol 50 MG TAB PO PRN ×2 (09:14→17:41)
[2019-02-20] MEDS: FUROSEMIDE 20 MG TAB PO SCH (09:14)
[2019-02-20] MEDS: MOM 30ML SUSPENSION UDC PO SCH (09:15)
[2019-02-20 13:05] VITALS: BP 158/82
[2019-02-20] MEDS ORDERED: RIVAROXABAN 10 MG TAB (XARELTO) PO SCH (18:00)
--- NOTE | 2019-02-20 20:15 | IPNPDOC ---
Date Seen The patient was seen on 02/20/19. Progress Note SUBJECTIVE: Patient reported having more R. knee discomfort but significant. Reported feeling sick and nauseous overnight. Afebrile overnight. OBJECTIVE PHYSICAL EXAMINATION: VITAL SIGNS: Please see below. General: Alert with mild discomfort Eyes: Normal sclera, EOMI HENT: Atraumatic Cardiovascular: Normal rate, normal rhythm. Pulmonary: Clear to auscultation b/l, no wheezing GI: Soft, nontender, nondistended Skin: Warm and dry. MSK: LLE slightly swollen with overlying bandage c/d/i. Neuro: CN grossly intact. No focal deficits. Psych: oriented x 3 LABORATORY DATA, IMAGING STUDIES, MICROBIOLOGY: Please see below. DVT prophylaxis ordered?: Vj ASSESSMENT AND PLAN: 1. R. knee pain s/p RKA - Pain control. c/w PT. 2. HTN - c/w home medication. 3. HLD - c/w atorvastatin. 4. Nausea - Appeared to improve in AM. Will monitor. - Zofran PRN. DISPOSITION: Home when medically clear. VS, I&O, 24H, Fishbone Vital Signs/I&O Vital Signs Date Time Temp Pulse Resp B/P (MAP) Pulse Ox O2 Delivery O2 Flow Rate FiO2 02/20/19 18:11 18 Room Air 02/20/19 13:05 97.0 92 158/82 (107) 98 02/19/19 12:05 3 I&O- Last 24 Hours up to 6 AM 02/20/19 06:00 Intake Total 2260 ml Output Total 450 ml Balance 1810 ml Laboratory Data 24H LABS Laboratory Tests 2 02/20/19 05:47: Nucleated Red Blood Cells % (auto) 0.0 CBC/BMP Laboratory Tests 02/20/19 05:47 SHAHRIAR GUNTER MD Feb 20, 2019 20:15
[2019-02-20 20:30] VITALS: BP 150/77
[2019-02-21] MEDS: traMADol 50 MG TAB PO PRN (03:10)
[2019-02-21 06:35] VITALS: BP 133/72
[2019-02-21 06:58] LABS: HEMATOCRIT 31.8 % (36.0-47.0); HEMOGLOBIN 10.6 g/dl (12.0-15.5); MEAN CORPUSCULAR HEMOGLOBIN 30.3 pg (27.0-33.0); MEAN CORPUSCULAR HGB CONC 33.3 g/dl (32.0-36.5); MEAN CORPUSCULAR VOLUME 90.9 fl (80.0-96.0); PLATELET COUNT, AUTOMATED 262 10^3/uL (150-450); WHITE BLOOD COUNT 15.9 10^3/uL (4.0-10.0)
[2019-02-21 07:26] LABS: BLOOD UREA NITROGEN 16 MG/DL (7-18); CALCIUM LEVEL 8.2 MG/DL (8.8-10.2); CARBON DIOXIDE LEVEL 27 MEQ/L (21-32); CHLORIDE LEVEL 103 MEQ/L (98-107); CREATININE FOR GFR 0.75 MG/DL (0.55-1.30); GLOMERULAR FILTRATION RATE > 60.0 (>39); GLUCOSE, FASTING 118 MG/DL (70-100); POTASSIUM SERUM 3.3 MEQ/L (3.5-5.1); SODIUM LEVEL 137 MEQ/L (136-145)
[2019-02-21] MEDS: MIRALAX *UNIT DOSE* 17GM PACKET PO SCH (09:00)
[2019-02-21] MEDS: MOM 30ML SUSPENSION UDC PO SCH (09:00)
[2019-02-21] MEDS ORDERED: POTASSIUM CHLORIDE 10 MEQ SR TABLET PO ONE (09:00)
[2019-02-21] MEDS: FUROSEMIDE 20 MG TAB PO SCH (09:29)
[2019-02-21] MEDS: SENOKOT S TAB PO SCH (09:29)
[2019-02-21] MEDS: ATORVASTATIN 20 MG TAB PO SCH (09:29)
[2019-02-21 09:30] VITALS: BP 128/68
[2019-02-21] MEDS: amLODIPine 5 MG TAB PO SCH (09:30)
[2019-02-21] MEDS: OMEPRAZOLE 20 MG CAP PO SCH (09:30)
--- NOTE | 2019-02-21 16:32 | IPNPDOC ---
Text Note Date of Service The patient was seen on 02/21/19. NOTE SUBJECTIVE: Mrs. Case is a 73 year old female admitted by ortho for RKA. She was seen this morning and reported she is schedukled for d/c this afternoon. Pt. is really looking forward to getting home and said she feels 'great!' She denied any new symptoms at this time. Denied fever/chills or nausea overnight. OBJECTIVE PHYSICAL EXAMINATION: VITAL SIGNS: Please see below. General: Alert, cooperative Eyes: Normal sclera, EOMI HENT: Atraumatic Cardiovascular: Normal rate, normal rhythm. Pulmonary: Clear to auscultation b/l, no wheezing GI: Soft, nontender, nondistended Skin: Warm and dry. MSK: LLE slightly swollen; some blood noted beneath bandage Neuro: CN grossly intact. No focal deficits. Psych: oriented x 3 LABORATORY DATA, IMAGING STUDIES, MICROBIOLOGY: Please see below. DVT prophylaxis ordered?: Xarelto ASSESSMENT AND PLAN: Deisy Case is a 73 year old female s/p RKA. Patient has a PMHx of HTN, GERD, Pure hypercholesterolemia, mild WONG, Obesity. 1. R. knee pain s/p RKA - Continue pain management per ortho. - PT per ortho. 2. HTN - Continue Amlodipine 5mg QDAY. 3. GERD - Continue Omeprazole 20mg QDAY 4. Pure hypercholesterolemia - Continue Lipitor 40g QDAY 5. mild WONG CPAP at home if discharged today as planned. Otherwise, utilize nighttime Oxygen. 6. Obesity Recommend exercise 30 mins/day, 5 days per week once recovery from surgery is complete and patient has surgical clearance. DISPOSITION: Clear for discharge home today. VS,Ludinbone, I+O VS, Fishbone, I+O Laboratory Tests 02/21/19 06:37 Vital Signs Date Time Temp Pulse Resp B/P (MAP) Pulse Ox O2 Delivery O2 Flow Rate FiO2 02/21/19 09:30 82 128/68 02/21/19 06:35 98.9 18 92 Room Air 02/19/19 12:05 3 I&O- Last 24 Hours up to 6 AM 02/21/19 06:00 Intake Total 1315 ml Output Total 1000 ml Balance 315 ml ATTENDING NOTE I have personally performed a face to face diagnostic evaluation on this patient. I have reviewed and agree with the care plan. BREANNE SANABRIA PA-C Feb 21, 2019 16:32 SHAHRIAR GUNTER MD Feb 21, 2019 17:25
== END 2019-02-21 11:40 | disposition home or self-care (01) | DRG 470 ==
LOC: M OR 09:53 → M MS5PR 15:15
PROVIDERS: ADMIT Orthopaedic Surgery; ATTEND Orthopaedic Surgery
PROC: 0SRC0JZ Replacement of Right Knee Joint with Synthetic Substitute, Open Approach (ICD-10-PCS; principal; 2019-02-19 12:15)
DX: M17.11 Unilateral primary osteoarthritis, right knee (principal); K21.9 Gastro-esophageal reflux disease without esophagitis; E78.00 Pure hypercholesterolemia, unspecified; I10 Essential (primary) hypertension; G47.33 Obstructive sleep apnea (adult) (pediatric); E66.9 Obesity, unspecified; N31.9 Neuromuscular dysfunction of bladder, unspecified; Z96.0 Presence of urogenital implants; R11.0 Nausea; Z68.35 Body mass index [BMI] 35.0-35.9, adult; Z98.41 Cataract extraction status, right eye; Z98.42 Cataract extraction status, left eye

== ENCOUNTER → 2019-04-25 | Outpatient (REF) | payer MEDICARE ==
[~2019-04-25] MED LIST changes: -BUPIVACAINE LIPOSOME/PF 1.3% 20ML VIAL (13.3MG/ML)(EXPAREL)(C9290 PER1MG) As Ordered ONE; -EPINEPHrine INJ 1 MG/ML 1ML AMP As Ordered ONE; +FAMC500T PO; -FAMC500T10 PO; -LR 1,000 ML IV ONE; -OMEP-172 PO; +OMEP1CAP73 PO; +TRAM50TA2 PO; -TRANEXAMIC ACID 100 MG/ML 10ML VIAL As Ordered ONE; +XARE10TA PO; -ceFAZolin 1GM INJ (J0690 PER 500MG) As Ordered ONE; -ceFAZolin SOD 2 GM in IV 1 EA IV ONE
== END ==
LOC: M LAB REF 17:56
PROVIDERS: ATTEND Nurse Practitioner Adult Health
DX: M54.9 Dorsalgia, unspecified (principal)

== ENCOUNTER → 2019-05-08 | Outpatient (CLI) | payer MEDICARE ==
--- NOTE | 2019-05-08 09:08 | REP ---
Complete abdominal ultrasound for left upper quadrant and right lower quadrant pain: There is no cholelithiasis, gallbladder wall thickening or pericholecystic fluid. There is no intrahepatic or extrahepatic biliary duct dilatation. The common biliary duct measures 6.5 mm in diameter. The hepatic parenchyma is hyperechoic and heterogeneous compatible with hepato steatosis. There are no hepatic masses or cysts. The visualized areas of the pancreas are unremarkable. Portions of the pancreas are obscured by bowel gas. The spleen is normal size measuring 13.9 x 3.9 by 8 x 4 cm for a splenic index of 455. The splenic parenchyma is heterogeneous. There are no splenic masses or cysts. Right kidney measures 10.3 x 5.2 x 4.4 cm. The left kidney measures 10.6 x 4.2 x 5.2 cm. The kidneys are normal size. There is renal cortical thinning bilaterally. There is a right renal upper pole 2.8 cm Bosniak type 1 cyst. There is no left renal cyst. There are no solid renal masses. There are no renal calculi. There is no hydronephrosis. Aorta: Proximal 2.6 cm. Mid 1.9 cm. Distal 1.5 cm. No abdominal aortic aneurysm. Impression: Hepato steatosis. Bilateral renal cortical thinning. Right renal upper pole cyst. No ascites. Electronically Signed by Neo Bullock MD 05/08/2019 09:01 A
== END ==
LOC: M RAD 08:20
PROVIDERS: ATTEND Nurse Practitioner Adult Health
DX: R10.9 Unspecified abdominal pain (principal)

== ENCOUNTER → 2019-05-17 | Outpatient (CLI) | payer MEDICARE ==
[~2019-05-17] MED LIST changes: +GASTROGRAFIN SOLUTION 30ML (Q9963) As Ordered ONE; +ISOVUE-370 76% 100ML VIAL (Q9967) As Ordered ONE
--- NOTE | 2019-05-17 17:30 | REPVR ---
PROCEDURE INFORMATION: Exam: CT Abdomen And Pelvis Without And With Contrast Exam date and time: 05/17/2019 5:01 PM Age: 73 years old Clinical indication: Abdominal pain; Generalized; Additional info: Lower abdominal pain, unspecified TECHNIQUE: Imaging protocol: Computed tomography of the abdomen and pelvis without and with intravenous contrast. Radiation optimization: All CT scans at this facility use at least one of these dose optimization techniques: automated exposure control; mA and/or kV adjustment per patient size (includes targeted exams where dose is matched to clinical indication); or iterative reconstruction. Contrast material: ISOVUE 370; Contrast volume: 100 ml; Contrast route: IV; Other contrast: Oral, GASTROGRAFIN; COMPARISON: CT ABD PELVIS WITH CONTRAST 06/10/2014 11:15 AM FINDINGS: Liver: Unremarkable. Gallbladder and bile ducts: Unremarkable. No ductal dilation. Pancreas: Unremarkable. No ductal dilation. Spleen: Unremarkable. Adrenals: Unremarkable. Kidneys and ureters: 3.2 cm fluid density cyst in the right kidney, to which no further follow-up is necessary. No hydronephrosis or stones. Stomach and bowel: Stomach is unremarkable. No small bowel obstruction. Large bowel is unremarkable. Appendix: The appendix is normal. Intraperitoneal space: No pneumoperitoneum. No significant fluid collection. Vasculature: Mild atherosclerotic calcifications of the aorta and major branches. Lymph nodes: No enlarged lymph nodes. Bladder: Unremarkable. Reproductive: Unremarkable as visualized. Bones/joints: Multilevel degenerative changes of the visualized spine. No acute osseous lesion or fracture. Sacral stimulator device in place. Soft tissues: Unremarkable. IMPRESSION: 1. No acute intra-abdominal pathology. 2. Other chronic findings, as above. Electronically signed by: Daniel Maradiaga On 05/17/2019 17:29:49 PM
== END ==
LOC: M RAD 15:14
PROVIDERS: ATTEND Nurse Practitioner Adult Health
DX: R10.9 Unspecified abdominal pain (principal)
CPT/HCPCS: 74178; Q9963; Q9967

== ENCOUNTER → 2019-08-03 | Outpatient (REF) | payer MEDICARE ==
[~2019-08-03] MED LIST changes: -GASTROGRAFIN SOLUTION 30ML (Q9963) As Ordered ONE; -ISOVUE-370 76% 100ML VIAL (Q9967) As Ordered ONE
== END ==
LOC: M LAB REF 17:21
PROVIDERS: ATTEND Nurse Practitioner Adult Health
DX: K14.0 Glossitis (principal)

== ENCOUNTER → 2019-12-26 | Outpatient (CLI) | payer MEDICARE ==
[~2019-12-26] MED LIST changes: +AMLO1TAB24 PO; -AMLO5TAB6 PO
--- NOTE | 2019-12-26 16:12 | REP ---
INDICATION: SCREENING MAMMO COMPARISON: Mammography comparison mammography December 20, 2018, December 07, 2017, and August 16, 2016. TECHNIQUE: Bilateral CC and MLO) view(s) were taken. FINDINGS: Scattered fibroglandular elements are seen bilaterally. No suspicious or dominant density is seen. There are secretory type benign calcifications again noted bilaterally unchanged. No microcalcification or architectural distortion is seen. No worrisome skin change is appreciated. 3-D tomosynthesis shows no additional finding. The Volpara volumetric breast density pattern is B. IMPRESSION: BIRADS/ACR category 1 negative mammogram. [facility] score is 4.5%. This mammogram was interpreted with the aid of an FDA-approved computer-aided detection system. The patient states she had a clinical breast exam in November of 2019. The patient letter being requested is M 1. RECOMMENDATION: Repeat screening mammography recommended 1 year (for women over 40). <Electronically signed by Jose Barker > 12/26/19 [id number]
== END ==
LOC: M WHC 12:33
PROVIDERS: ATTEND Nurse Practitioner Adult Health
DX: Z12.31 Encounter for screening mammogram for malignant neoplasm of breast (principal)

== ENCOUNTER → 2020-12-11 | Outpatient (REF) | payer MEDICARE ==
[~2020-12-11] MED LIST changes: +OMEP20TA2 PO; -OMEP20TA9 PO; +OMEP40CA4 PO; -OMEP40CA97 PO
== END ==
LOC: M LAB REF 16:26
PROVIDERS: ATTEND Nurse Practitioner Adult Health
DX: L81.8 Other specified disorders of pigmentation (principal)

== ENCOUNTER → 2021-01-30 | Outpatient (CLI) | payer MEDICARE ==
--- NOTE | 2021-01-30 16:42 | REPMRS ---
Patient History The patient states she had a clinical breast exam in October 2020. Family history of unknown cancer at age 52 in father, breast cancer under age 50 in maternal aunt, unknown cancer at age 72 in maternal aunt, colorectal cancer at age 50 or over in maternal aunt. Moderna vaccines 03/29/20 left arm. 04/26/20 left arm. 01/05/21 left arm. Patient states no breast complaints today. Patient has signed MRS History Sheet. Digital Woman Screen Mammo: January 30, 2021 - Exam #: [id number] Bilateral CC and MLO view(s) were taken. Technologist: RT Jayant Prior study comparison: December 26, 2019, bilateral digital woman screen mammo performed at [facility] and [facility]. December 20, 2018, bilateral digital mammo screening bilat, performed at [facility]. FINDINGS: There are scattered fibroglandular densities. Screening. Digital screening (2D) mammography was performed bilaterally in the CC and MLO projections. Additionally, breast tomosynthesis (3D mammography) was performed bilaterally in the CC and MLO projections. Todays exam was compared to the prior exam/exams. By history, the patient has no complaints of a palpable breast abnormality or other significant breast complaints. The Volpara volumetric breast density category is B, there are scattered areas of fibroglandular densities. The breasts are unchanged in size and shape. There are no rinku-soft tissue densities or spiculated masses. There is no internal architectural distortion.Once again, stable benign appearing calcifications are seen. There are no suspicious rinku-calcific clusters. Skin thickening or nipple retraction is not present. IMPRESSION: BI-RADS Category 2- Benign Findings. There is no evidence of malignant alteration of the breasts. Followup examination recommended in one year. The lifetime [facility] score is 4.2% This mammogram was read with the assistance of Earnest,an FDA approved computer aided detection system for mammography. Negative x-ray reports should not delay surgical consultation if a dominant or clinically suspicious mass is present. Not all breast cancers can be identified by mammography. Therefore, we recommend that you continue to perform regular breast self-examination and physical examination and then promptly contact your physician of any concerns or changes. Adenosis and dense breasts may obscure an underlying neoplasm. No significant changes when compared with prior studies. Assessment: BI-RADS/ACR category 2 mammogram. Benign Findings. Recommendation Routine screening mammogram of both breasts in 1 year. Electronically Signed By: Juan Centeno MD 01/30/21 [id number]
== END ==
LOC: M WHC 13:55
PROVIDERS: ATTEND Nurse Practitioner Adult Health
DX: Z12.31 Encounter for screening mammogram for malignant neoplasm of breast (principal)

== ENCOUNTER → 2022-02-01 | Outpatient (CLI) | payer MEDICARE ==
[~2022-02-01] MED LIST changes: +LOSA100T45 PO; -LOSA100T50 PO
== END ==
LOC: M WHC 09:03
PROVIDERS: ATTEND Nurse Practitioner Adult Health
DX: Z12.31 Encounter for screening mammogram for malignant neoplasm of breast (principal); M81.0 Age-related osteoporosis without current pathological fracture

== ENCOUNTER → 2022-07-28 | Outpatient (CLI) | payer MEDICARE ==
[~2022-07-28] MED LIST changes: -LOSA100T45 PO; +LOSA100T46 PO
== END ==
LOC: M WHC 09:40
PROVIDERS: ATTEND Nurse Practitioner Family
DX: R10.2 Pelvic and perineal pain (principal)

== ENCOUNTER → 2022-10-04 | Outpatient (REF) | payer MEDICARE ==
[~2022-10-04] MED LIST changes: +AMLO1TAB25 PO; +QC F0.52 PO
[2022-10-04 12:47] LABS: APPEARANCE, URINE CLEAR (CLEAR); BACTERIA, URINE AUTO NEGATIVE (NEGATIVE); BILIRUBIN, URINE AUTO NEGATIVE (NEGATIVE); BLOOD, URINE BLOOD NEGATIVE (NEGATIVE); COLOR, URINE YELLOW (YELLOW); GLUCOSE, URINE (UA) AUTO NEGATIVE (NEGATIVE); KETONE, URINE AUTO NEGATIVE (NEGATIVE); LEUKOCYTE ESTERASE, URINE AUTO NEGATIVE (NEGATIVE); NITRITE, URINE AUTO NEGATIVE (NEGATIVE); PROTEIN, URINE AUTO NEGATIVE (NEGATIVE); RBC, URINE AUTO 0 /HPF (0-3); SQUAMOUS EPITHELIAL CELL UR AU 4 /HPF (0-6); UROBILINOGEN, URINE AUTO 0.2 mg/dL (0.0-2.0); WBC, URINE AUTO 2 /HPF (0-3)
== END ==
LOC: M LAB REF 12:13
PROVIDERS: ATTEND Internal Medicine
DX: Z01.818 Encounter for other preprocedural examination (principal)

== ENCOUNTER 2022-10-11 06:06 | Day surgery (SDC) | payer MEDICARE ==
[~2022-10-11] VITALS: Ht 162.6 cm; Wt 98.1 kg
[2022-10-11] MEDS ORDERED: propofoL 200 MG/20 ML VIAL As Ordered ONE ×2 (06:53→06:54)
[2022-10-11] MEDS ORDERED: ONDANSETRON 4MG 2ML VIAL As Ordered ONE (06:55)
[2022-10-11] MEDS ORDERED: KETOROLAC 60MG 2ML VIAL As Ordered ONE (06:55)
[2022-10-11] MEDS ORDERED: MIDAZOLAM INJ 2MG/2ML VIAL As Ordered ONE (06:58)
[2022-10-11] MEDS ORDERED: fentaNYL 100 MCG/2 ML INJECTION As Ordered ONE (06:59)
[2022-10-11] MEDS: LR 1,000 ML IV SCH (07:02)
[2022-10-11] MEDS: ceFAZolin SOD 2 GM in IV 1 EA IV ONE (07:41)
[2022-10-11] MEDS ORDERED: ACETAMINOPHEN 1000MG 100ML IV BAG As Ordered ONE (07:45)
[2022-10-11] MEDS: LIDOCAINE 1% SDV 30ML VIAL As Ordered ONE (08:03)
[2022-10-11 09:00] VITALS: BP 138/70; TEMP 97.1; O2SAT 95
== END 2022-10-11 09:05 | disposition home or self-care (01) ==
LOC: M SDC 06:06
PROVIDERS: ATTEND Specialist
DX: T85.193A Other mechanical complication of implanted electronic neurostimulator, generator, initial encounter (principal); X58.XXXA Exposure to other specified factors, initial encounter; E66.9 Obesity, unspecified; Z68.36 Body mass index [BMI] 36.0-36.9, adult; G47.30 Sleep apnea, unspecified; Z79.899 Other long term (current) drug therapy; Z88.8 Allergy status to other drugs, medicaments and biological substances; Z90.710 Acquired absence of both cervix and uterus
CPT/HCPCS: 64585; 64595; J0131; J0690; J1100; J1885; J2250; J2405; J3010

== ENCOUNTER → 2023-02-07 | Outpatient (CLI) | payer MEDICARE | LOC: M WHC 09:46 | PROVIDERS: ATTEND Nurse Practitioner Family | DX: Z12.31 Encounter for screening mammogram for malignant neoplasm of breast (principal); R92.1 Mammographic calcification found on diagnostic imaging of breast ==

== ENCOUNTER → 2024-11-16 | Outpatient (CLI) | payer MEDICARE ==
[~2024-11-16] MED LIST changes: +HYDR12.510 PO; -HYDR12CA PO; +OMEP-611 PO; -OMEP20TA2 PO
== END ==
LOC: M RAD 11:43
PROVIDERS: ATTEND Internal Medicine
DX: M79.672 Pain in left foot (principal)